=== PATIENT | male | born 1960 | race Caucasian/White ===

== ENCOUNTER → 2023-03-13 07:42 | Outpatient (REF) | payer BC, SELFPAY | LOC: RAD 07:42 | PROVIDERS: ATTENDING PHYSICIAN Physician Assistant; FAMILY PHYSICIAN Student in an Organized Health Care Education/Training Program | DX: D35.01 Benign neoplasm of right adrenal gland (principal); D35.02 Benign neoplasm of left adrenal gland | CPT/HCPCS: 74170; Q9967 ==

== ENCOUNTER → 2023-03-16 08:12 | Outpatient (REF) | payer BC, SELFPAY | LOC: DHCBS MAIN 08:12 | PROVIDERS: ATTENDING PHYSICIAN Nuclear Medicine Nuclear Cardiology; FAMILY PHYSICIAN Student in an Organized Health Care Education/Training Program | DX: I51.7 Cardiomegaly (principal); R94.31 Abnormal electrocardiogram [ECG] [EKG] | CPT/HCPCS: 93306 ==

== ENCOUNTER → 2023-12-10 12:14 | Outpatient (REF) | payer BC, SELFPAY ==
[2023-12-10 14:55] LABS: Blood Urea Nitrogen 12 mg/dl (9-20); Calcium 9.5 mg/dl (8.4-10.2); Carbon Dioxide 30 mmol/L (22-30); Chloride 101 mmol/L (98-107); Glucose 89 mg/dl (70-99); Potassium 4.4 mmol/L (3.5-5.1); Sodium 141 mmol/L (135-145); eGFR > 60.00
[2023-12-10 15:22] LABS: PSA, Total - Screen 1.38 ng/ml (0.0-4.0)
== END ==
LOC: REG 12:14
PROVIDERS: ATTENDING PHYSICIAN Urology; FAMILY PHYSICIAN Family Medicine
DX: N28.89 Other specified disorders of kidney and ureter (principal); Z12.5 Encounter for screening for malignant neoplasm of prostate
CPT/HCPCS: 36415; 80048; G0103

== ENCOUNTER → 2023-12-11 07:23 | Outpatient (REF) | payer BC, SELFPAY | LOC: RAD 07:23 | PROVIDERS: ATTENDING PHYSICIAN Urology; FAMILY PHYSICIAN Family Medicine | DX: N28.89 Other specified disorders of kidney and ureter (principal); C64.2 Malignant neoplasm of left kidney, except renal pelvis | CPT/HCPCS: 74178; Q9967 ==

== ENCOUNTER 2023-12-27 06:38 | Day surgery (SDC) | payer BC, SELFPAY ==
[2023-12-18 10:14] VITALS: BMI 35.9
[2023-12-18 10:47] LABS: Hematocrit 45.9 % (39.0-52.0); Hemoglobin 14.3 g/dL (13.0-18.0); Mean Corp Hgb Conc. 31.2 g/dL (33.0-37.0); Mean Corpuscular Hgb 27.2 pg (27.0-31.0); Mean Corpuscular Volume 87.3 fL (80.0-94.0); Mean Platelet Volume 10.4 fL (7.4-10.4); Platelet Count 233 10^3/uL (130-400); Red Blood Cell Count 5.26 10^6/uL (4.70-6.10); Red Cell Dist. Width 14.6 % (11.5-14.5); White Blood Cell Count 8.1 10^3/uL (4.8-10.8)
[2023-12-27] VITALS (11 sets, daily range): BP systolic 128–161; BP diastolic 71–93; BMI 35.9
[2023-12-27 12:41] LABS: Glucose - Point of Care 99 mg/dl (70-99)
[2023-12-27 16:18] LABS: Glucose - Point of Care 97 mg/dl (70-99)
[2023-12-27 18:02] LABS: Glucose - Point of Care 109 mg/dl (70-99)
[2023-12-27] MEDS: Pyridium 200 MG PO (18:31)
== END 2023-12-27 19:10 | disposition home or self-care (01) ==
LOC: SDS 06:38
PROVIDERS: ATTENDING PHYSICIAN Urology; FAMILY PHYSICIAN Family Medicine; OTHER PHYSICIAN Internal Medicine Gastroenterology
DX: N20.2 Calculus of kidney with calculus of ureter (principal)
CPT/HCPCS: 52356; 36415; 74018; 76000; 82365; 82962; 85027; A4300; C1758; C1769; C1894

== ENCOUNTER → 2024-03-21 11:36 | Outpatient (REF) | payer BC, SELFPAY | LOC: RAD 11:36 | PROVIDERS: ATTENDING PHYSICIAN Physician Assistant; FAMILY PHYSICIAN Family Medicine; OTHER PHYSICIAN Internal Medicine Gastroenterology; REFERRING PHYSICIAN Urology | DX: D35.01 Benign neoplasm of right adrenal gland (principal); D35.02 Benign neoplasm of left adrenal gland | CPT/HCPCS: 74170; Q9967 ==

== ENCOUNTER → 2025-01-06 07:07 | Outpatient (REF) | payer BC, SELFPAY | LOC: RAD 07:07 | PROVIDERS: ATTENDING PHYSICIAN Urology; FAMILY PHYSICIAN Family Medicine | DX: N28.89 Other specified disorders of kidney and ureter (principal); N20.0 Calculus of kidney; C64.2 Malignant neoplasm of left kidney, except renal pelvis | CPT/HCPCS: 71260; 74170; Q9967 ==